=== PATIENT | male | born 1965 | race Caucasian/White ===

== ENCOUNTER 2020-09-01 08:50 | Day surgery (SDC) | payer BC, OTHER ==
[2020-09-01] MEDS ORDERED: Midazolam 1 MG/ML 2 ML SDV ONE (09:15)
[2020-09-01] MEDS ORDERED: fentaNYL 100 MCG/2 ML SDV ONE (09:15)
[2020-09-01] MEDS ORDERED: Dextrose 5%-Lactated Ringers 1,000 ML IV SCH (09:15)
[2020-09-01] MEDS ORDERED: Glycopyrrolate 0.2 MG/ML 2 ML SDV IVPUSH ONE (09:15)
[2020-09-01] MEDS ORDERED: Propofol 200 MG/20 ML SDV ONE (09:16)
[2020-09-01 12:11] VITALS: BP 109/64; PULSE 67
--- NOTE | 2020-09-10 19:28 | OR ---
DATE OF PROCEDURE: 09/01/2020 SURGEON: Vinny Woo MD PREOPERATIVE DIAGNOSES: 1. Intermittent dysphagia referable to the distal esophagus. 2. Family history of colon carcinoma. POSTOPERATIVE DIAGNOSES: 1. Occasional dysphagia referable to distal esophagus associated with a 4 to 5 cm hiatal hernia with minimal inflammation and no obvious upward extension of columnar mucosa at the esophagogastric junction. 2. Normal colonoscopic examination. OPERATIVE PROCEDURES: 1. Esophagogastroduodenoscopy with biopsies of esophagogastric junction. 2. Flexible colonoscopy. ANESTHESIA: IV sedation. INDICATIONS FOR PROCEDURE: This is a 55-year-old presenting with some occasional dysphagia referable to distal esophagus. He does not have overt heartburn symptoms and has not really had any sense of food actually being caught. There is simply just some occasional discomfort and sense of dysphagia referable to the distal esophagus. In addition to this, the patient has a family history consistent with his mother having a colon carcinoma. Plan is to proceed with upper and lower endoscopy with biopsies and/or polypectomy as indicated. Potential risks including bleeding and perforation were discussed and the patient wishes to proceed. DETAILS OF PROCEDURE: The patient was taken to the operating room and placed in a left lateral decubitus position. IV sedation was administered after which the upper endoscope was passed orally through the length of the esophagus, into the stomach with retroflexion view of the fundus, and thereafter through the pyloric channel and into the proximal duodenum. Findings included normal hypopharynx, larynx, upper esophageal sphincter, and esophageal body. At the EG junction, the patient had a fairly large hiatal hernia measuring around 4 to 5 cm. This was not associated with any stricturing. There was only minimal gross inflammation and no obvious upward extension of the columnar mucosa. Remainder of the gastric and duodenal exams were unremarkable. At this point, multiple biopsies were obtained from the esophagogastric junction, sent for histologic evaluation. Minimal bleeding from the biopsy sites was seen and the procedure then concluded. Attention was taken to the colonoscopy. The initial digital rectal exam was performed and was unremarkable. The colonoscope was then passed in the rectum with retroflexion revealing uncomplicated hemorrhoidal columns. The scope was eventually passed to the level of the cecum. The prep was quite good, only a small amount of liquid stool was present. To that level, no pathology was seen. Specifically, there were no polyps, no areas of colitis or diverticulosis or other signs of neoplasia. The scope was then withdrawn, and the above findings reconfirmed, and the procedure then concluded. Recommendation would be to repeat the colonoscopy in 5 years given the patient's family history of colon carcinoma. At this point, he has very minimal symptoms in regard to the reflux and I do not think it would be medically necessary to need to treat that. Indications for treatment would be if today's biopsies show Cedeño's esophagus or he over time develops increasing symptoms at which time he is instructed to contact Dr. Woo. Vinny Woo MD /[id number]
== END 2020-09-01 12:40 | disposition home or self-care (01) ==
LOC: JP.SDS 08:50
PROVIDERS: ATTEND Surgery
DX: Z12.11 Encounter for screening for malignant neoplasm of colon (principal); K20.0 Eosinophilic esophagitis; K44.9 Diaphragmatic hernia without obstruction or gangrene; K64.9 Unspecified hemorrhoids; Z80.0 Family history of malignant neoplasm of digestive organs; Z79.899 Other long term (current) drug therapy
CPT/HCPCS: 43239; 45378; 88305; J2250; J2704; J3010; J3490; J7121